=== PATIENT | female | born 1985 | race African-American/Black ===

== ENCOUNTER 2017-04-23 03:28 | Emergency (ER) | payer MEDICAID ==
[~2017-04-23] VITALS: Ht 165.1 cm; Wt 96.0 kg
[~2017-04-23 03:28] MED LIST: ALD250; NO MEDS; RANI150C3
[2017-04-23 03:37] VITALS: BP 158/106
== END 2017-04-23 06:30 | disposition left against medical advice (07) ==
LOC: ER 03:28
DX: Z53.21 Procedure and treatment not carried out due to patient leaving prior to being seen by health care provider (principal)